=== PATIENT | male | born 1950 | race Caucasian/White ===

== ENCOUNTER 2017-06-12 12:36 | Emergency (ER) | payer MEDICARE, MEDICAID ==
[~2017-06-12] VITALS: Ht 180.3 cm; Wt 83.8 kg
[~2017-06-12 12:36] MED LIST: ALBU18HF INH; BUDE10.2 INH; CITA10TA4 PO; DOXE10CA PO; GUAI600T80 PO; LEVO500T47 PO; NICO-485 TD; PRED10TA PO; PROP10TA PO
[2017-06-12] MEDS ORDERED: MORPHINE SULFATE 4 MG/ML, 1ML ONE (12:59)
[2017-06-12] MEDS ORDERED: ONDANSETRON 2MG/ML, 2ML ONE (12:59)
[2017-06-12] MEDS ORDERED: ONDANSETRON 2MG/ML, 2ML IVPush ONE (13:00)
[2017-06-12] MEDS ORDERED: SODIUM CHLORIDE 0.9% 1,000ML IVBOLUS ONE (13:00)
[2017-06-12] MEDS ORDERED: MORPHINE SULFATE 4 MG/ML, 1ML IVPush PRN (13:00)
[2017-06-12] MEDS ORDERED: SODIUM CHLORIDE FLUSH 10ML SYR IVF ONE (13:00)
[2017-06-12 13:20] LABS: BASOPHILS # (AUTO) 0.01 x10^3/uL (0-0.1); BASOPHILS % (AUTO) 0 % (0-1); EOSINOPHILS # (AUTO) 0.02 x10^3/uL (0-0.4); EOSINOPHILS % (AUTO) 0 % (1-7); LYMPHOCYTES # (AUTO) 0.72 x10^3/uL (1-3.4); LYMPHOCYTES % (AUTO) 7 % (22-44); MD NO; MEAN CORPUSCULAR HEMOGLOBIN 33.3 pg (27.5-34.5); MEAN CORPUSCULAR HGB CONC 34.4 g/dL (33.2-36.2); MEAN CORPUSCULAR VOLUME 96.6 fL (81-97); MEAN PLATELET VOLUME 8.9 fL (7.4-10.4); MONOCYTES % (AUTO) 4 % (2-9); NEUTROPHILS # (AUTO) 9.23 x10^3/uL (1.8-6.8); NEUTROPHILS % (AUTO) 89 % (42-75); PLATELET COUNT 128 x10^3/uL (130-400); RED BLOOD COUNT 5.49 x10^6/uL (4.38-5.82); RED CELL DISTRIBUTION WIDTH 12.9 % (9.4-14.8)
[2017-06-12 13:31] LABS: CULTURE INDICATED? NO; MICROSCOPIC AUTO
[2017-06-12 13:33] LABS: ALANINE AMINOTRANSFERASE 37 U/L (12-78); ALBUMIN 4.3 g/dL (3.4-5.0); ANION GAP 11 mmol/L (5-15); CALCIUM 8.9 mg/dL (8.5-10.1); CHLORIDE 105 mmol/L (98-107); CREATININE 1.08 mg/dL (0.7-1.3)
[2017-06-12 13:35] LABS: ALKALINE PHOSPHATASE 82 U/L (45-117); BILIRUBIN,TOTAL 1.5 mg/dL (0.2-1.0); TOTAL PROTEIN 8.3 g/dL (6.4-8.2)
[2017-06-12 14:20] VITALS: BP 159/83
== END 2017-06-12 14:42 | disposition home or self-care (01) ==
LOC: ED 13:21
DX: K52.9 Noninfective gastroenteritis and colitis, unspecified (principal); J44.9 Chronic obstructive pulmonary disease, unspecified; Z87.891 Personal history of nicotine dependence; F10.20 Alcohol dependence, uncomplicated
CPT/HCPCS: 36415; 80053; 81001; 83690; 85025; 96361; 96374; 96375; 99285; J2405; J7030

== ENCOUNTER 2018-12-14 11:17 | Outpatient (CLI) | payer MEDICARE, MEDICAID ==
[~2018-12-14 11:17] MED LIST changes: +ATOR-2 PO; +CLOP75TA PO; +LISI-167 PO; -PROP10TA PO; +PROP10TA16 PO
== END 2018-12-14 23:59 | disposition home or self-care (01) ==
LOC: CFH 11:17 → RAD 23:59
PROVIDERS: ATTEND Physician Assistant
DX: K22.5 Diverticulum of esophagus, acquired (principal); K74.69 Other cirrhosis of liver; I85.00 Esophageal varices without bleeding
CPT/HCPCS: 74220; 76705

== ENCOUNTER → 2019-04-12 | Outpatient (CLI) | payer MEDICARE, MEDICAID ==
[~2019-04-12] MED LIST changes: +REGADENOSON 0.4 MG/5 ML SYRINGE ONE
== END | disposition home or self-care (01) ==
LOC: CFH 10:23
PROVIDERS: ATTEND Internal Medicine Cardiovascular Disease
DX: I08.3 Combined rheumatic disorders of mitral, aortic and tricuspid valves (principal); I63.9 Cerebral infarction, unspecified; I10 Essential (primary) hypertension; F12.10 Cannabis abuse, uncomplicated; Z87.891 Personal history of nicotine dependence
CPT/HCPCS: 78452; 93017; 93306; A9502; J2785

== ENCOUNTER 2020-07-26 06:21 | Day surgery (SDC) | payer MEDICARE, MEDICAID ==
[~2020-07-26] VITALS: Ht 180.3 cm; Wt 97.5 kg
[~2020-07-26 06:21] MED LIST changes: -REGADENOSON 0.4 MG/5 ML SYRINGE ONE
[2020-07-26] MEDS ORDERED: FURO20TA3 PO (07:15)
[2020-07-26] MEDS ORDERED: PROP60TA PO (07:15)
[2020-07-26] MEDS ORDERED: POTASSIUM PO (07:15)
[2020-07-26] MEDS ORDERED: FAMO40TA61 PO (07:15)
[2020-07-26] MEDS ORDERED: LACTATED RINGERS 1,000 ML IV SCH (07:30)
[2020-07-26] MEDS ORDERED: CHLORHEXIDINE 15 ML UDC MM ONE (07:30)
[2020-07-26] MEDS ORDERED: FENTANYL PF 100 MCG/2ML ONE ×3 (07:39→09:43)
[2020-07-26] MEDS ORDERED: MIDAZOLAM 1 MG/ML, 2ML ONE (07:39)
[2020-07-26 07:43] VITALS: BP 134/81
[2020-07-26] MEDS ORDERED: OXYcodone 5 MG/5 ML ORAL.SOL UDC PO PRN (08:00)
[2020-07-26] MEDS ORDERED: hydrALAzine 20 MG/ML, 1ML IV PRN (08:00)
[2020-07-26] MEDS ORDERED: LABETALOL 5MG/ML, 20ML IV PRN (08:00)
[2020-07-26] MEDS ORDERED: MIDAZOLAM 1 MG/ML, 2ML IV PRN (08:00)
[2020-07-26] MEDS ORDERED: PROMETHAZINE 25 MG/ML, 1ML IVPush PRN (08:00)
[2020-07-26] MEDS ORDERED: MEPERIDINE/PF 25MG/0.5ML IVPush PRN (08:00)
[2020-07-26] MEDS ORDERED: HYDROmorphone 1 MG/ML, 1ML INJ IVPush PRN (08:00)
[2020-07-26] MEDS ORDERED: ALBUTEROL SULFATE 2.5 MG/3 ML NPPB PRN (08:00)
[2020-07-26] MEDS ORDERED: ACETAMINOPHEN 325 MG TABLET PO PRN (08:00)
[2020-07-26] MEDS ORDERED: BUPIVACAINE/PF 0.5% ONE (08:11)
[2020-07-26] MEDS ORDERED: LIDOCAINE 1%, 20ML ONE (08:11)
[2020-07-26] MEDS ORDERED: methylPREDNISolone *ACETATE* 40 MG/ML ONE (08:11)
[2020-07-26] MEDS ORDERED: TRIAMCINOLONE ACETONIDE 40 MG/ML, 1ML ONE (08:14)
[2020-07-26 08:15] LABS: ALANINE AMINOTRANSFERASE 65 U/L (12-78); ALBUMIN 3.4 g/dL (3.4-5.0); ANION GAP 5 mmol/L (5-15); CALCIUM 8.7 mg/dL (8.5-10.1); CHLORIDE 108 mmol/L (98-107); CREATININE 1.04 mg/dL (0.7-1.3)
[2020-07-26 08:17] LABS: ALKALINE PHOSPHATASE 80 U/L (45-117); BILIRUBIN,TOTAL 0.5 mg/dL (0.2-1.0); TOTAL PROTEIN 6.5 g/dL (6.4-8.2)
[2020-07-26] MEDS ORDERED: PROPOFOL 10 MG/ML, 20ML ONE (08:49)
[2020-07-26] MEDS ORDERED: ONDANSETRON 2MG/ML, 2ML ONE (08:49)
[2020-07-26] MEDS ORDERED: LIDOCAINE-MPF 2% ,5ML ONE (08:49)
[2020-07-26] MEDS ORDERED: DEXAMETHASONE 4 MG/ML, 1ML ONE (08:49)
[2020-07-26] MEDS ORDERED: KETOROLAC 30 MG/1 ML ONE (08:49)
[2020-07-26] MEDS ORDERED: CEFAZOLIN 1,000 MG ONE (08:49)
[2020-07-26] MEDS: FENTANYL PF 100 MCG/2ML IV PRN ×2 (09:50→09:55)
[2020-07-26] MEDS ORDERED: OXYcodone 5 MG/5 ML ORAL.SOL UDC ONE (09:52)
[2020-07-26] MEDS ORDERED: ACETAMINOPHEN 650 MG/20.3 ML UDC ONE (09:52)
[2020-07-26] MEDS ORDERED: hydrALAzine 20 MG/ML, 1ML ONE ×2 (09:57→11:04)
== END 2020-07-26 12:00 | disposition home or self-care (01) ==
LOC: OUT 06:21
PROVIDERS: ATTEND Orthopaedic Surgery Foot and Ankle Surgery
DX: M20.41 Other hammer toe(s) (acquired), right foot (principal); M79.671 Pain in right foot; M77.41 Metatarsalgia, right foot; G57.82 Other specified mononeuropathies of left lower limb; M20.42 Other hammer toe(s) (acquired), left foot; M20.11 Hallux valgus (acquired), right foot; I10 Essential (primary) hypertension; E78.5 Hyperlipidemia, unspecified; F12.90 Cannabis use, unspecified, uncomplicated; Z87.891 Personal history of nicotine dependence; Z20.822 Contact with and (suspected) exposure to COVID-19; Z79.899 Other long term (current) drug therapy; Z72.89 Other problems related to lifestyle
CPT/HCPCS: 28285; 28298; 28309; 36415; 64455; 73620; 80053; 87635; 93005; C1713; J0360; J0690; J1100; J1885; J2250; J2405; J2704; J3010; J3301; J7120; 76000; J1030